=== PATIENT | male | born 1950 | race Caucasian/White ===

== ENCOUNTER → 2019-04-09 | Outpatient (CLI) | payer OTHER | END | disposition home or self-care (01) | LOC: RAH 13:43 | PROVIDERS: ATTEND Internal Medicine Cardiovascular Disease | DX: Z13.6 Encounter for screening for cardiovascular disorders (principal) | CPT/HCPCS: 75571 ==

== ENCOUNTER → 2022-01-26 | Outpatient (CLI) | payer MEDICARE | END | disposition home or self-care (01) | LOC: SHCH 07:56 | PROVIDERS: ATTEND Internal Medicine Cardiovascular Disease | DX: I47.1 Supraventricular tachycardia (principal); I77.810 Thoracic aortic ectasia; E78.5 Hyperlipidemia, unspecified | CPT/HCPCS: 93306 ==

== ENCOUNTER → 2022-04-02 | Outpatient (CLI) | payer MEDICARE | END | disposition home or self-care (01) | LOC: RAH 08:03 | PROVIDERS: ATTEND Internal Medicine Cardiovascular Disease | DX: I71.40 Abdominal aortic aneurysm, without rupture, unspecified (principal); R59.1 Generalized enlarged lymph nodes | CPT/HCPCS: 71250; 74176 ==

== ENCOUNTER → 2022-06-01 | Outpatient (CLI) | payer MEDICARE | END | disposition home or self-care (01) | LOC: SHCH 08:28 | PROVIDERS: ATTEND Internal Medicine Cardiovascular Disease | DX: I70.0 Atherosclerosis of aorta (principal); I71.40 Abdominal aortic aneurysm, without rupture, unspecified | CPT/HCPCS: 93978 ==